=== PATIENT | male | born 1995 | race Caucasian/White ===

== ENCOUNTER 2024-09-16 16:42 | Emergency (ER) | payer BC, SELFPAY ==
[2024-09-16 17:02] VITALS: BP 162/104; PULSE 73; TEMP 37; O2SAT 99; BMI 28.0
[2024-09-16 19:03] VITALS: BP 164/108; PULSE 71; TEMP 36.7; O2SAT 100
--- NOTE | 2024-09-16 19:18 | PC.NURSE ---
this patient complains of mid and lower back pain from a fall forward at work on last Sunday09/12/2024,this patient also complains of left elbow pain on going from a previous fall at work a couple months ago this patient voices no other concerns, needs and this patient shows no sigsn of distress
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
--- NOTE | 2024-09-16 19:50 | PC.NURSE ---
i gave this patient verbal and written discharge orders along with 1 e-script,1 work note and this patient voices yes to understanding these. at time of discharge this patient voices no concerns, needs and shows no signs of distress
== END 2024-09-16 19:50 | disposition home or self-care (01) ==
PROVIDERS: Emergency Provider Emergency Medicine
DX: M54.9 Dorsalgia, unspecified (principal); M77.12 Lateral epicondylitis, left elbow
CPT/HCPCS: 72070; 72100; 99283